=== PATIENT | male | born 1940 | race Caucasian/White ===

== ENCOUNTER → 2017-06-21 | Outpatient (CLI) | payer MEDICARE ==
[~2017-06-21] MED LIST: Benicar Hct 201 EACH PO; CARV6.25 PO; FISH OIL 1,001000 MG PO; HYDR-86; MELO7.5 PO; SIMV10 PO
== END ==
LOC: PLD 07:07
DX: R22.1 Localized swelling, mass and lump, neck (principal)
CPT/HCPCS: 88173

== ENCOUNTER 2017-07-20 08:14 | Day surgery (SDC) | payer MEDICARE ==
[~2017-07-20] VITALS: Ht 180.3 cm; Wt 81.7 kg
[2017-07-20] MEDS ORDERED: CARV6.25 PO (09:08)
[2017-07-20] MEDS ORDERED: Benicar Hct 201 EACH PO (09:08)
[2017-07-20] MEDS ORDERED: FISH OIL 1,001000 MG PO (09:09)
[2017-07-20] MEDS ORDERED: HYDR-86 (09:09)
[2017-07-20] MEDS ORDERED: SIMV10 PO (09:10)
[2017-07-20] MEDS ORDERED: MELO7.5 PO (09:10)
== END 2017-07-20 11:22 | disposition home or self-care (01) ==
LOC: ORSCSDS 08:14
PROVIDERS: Otolaryngology
PROC: 0JB40ZX Excision of Right Neck Subcutaneous Tissue and Fascia, Open Approach, Diagnostic (ICD-10-PCS; principal; 2017-07-20 09:30)
DX: R22.1 Localized swelling, mass and lump, neck (principal); D21.0 Benign neoplasm of connective and other soft tissue of head, face and neck; I10 Essential (primary) hypertension; J44.9 Chronic obstructive pulmonary disease, unspecified; K21.9 Gastro-esophageal reflux disease without esophagitis; Z79.899 Other long term (current) drug therapy
CPT/HCPCS: 88304; J0171; J1100; J1885; J2405; J7120

== ENCOUNTER → 2019-05-08 | Outpatient (CLI) | payer MEDICARE | END | disposition home or self-care (01) | LOC: PLD 07:55 → LAB SHORT 07:55 | DX: D10.5 Benign neoplasm of other parts of oropharynx (principal) | CPT/HCPCS: 88305 ==

== ENCOUNTER → 2020-11-22 | Outpatient (CLI) | payer MEDICARE | END | disposition home or self-care (01) | LOC: LAB SHORT 14:09 → LAB 14:09 | DX: D48.5 Neoplasm of uncertain behavior of skin (principal) | CPT/HCPCS: 88305 ==

== ENCOUNTER → 2021-04-13 | Outpatient (CLI) | payer MEDICARE | END | disposition home or self-care (01) | LOC: LAB 10:51 → LAB SHORT 10:51 | DX: D48.5 Neoplasm of uncertain behavior of skin (principal) | CPT/HCPCS: 88305 ==

== ENCOUNTER → 2021-06-27 | Outpatient (CLI) | payer MEDICARE | END | disposition home or self-care (01) | LOC: LAB SHORT 11:06 | PROVIDERS: Family Medicine | DX: Z51.81 Encounter for therapeutic drug level monitoring (principal); Z79.899 Other long term (current) drug therapy | CPT/HCPCS: G0480 ==

== ENCOUNTER → 2022-07-15 | Outpatient (CLI) | payer MEDICARE ==
[2022-07-15 12:13] LABS: Source, Urine Clean Catch
[2022-07-15 12:30] LABS: Appearance, Urine Cloudy (Clear); Color, Urine Brown (P-Yellow)
[2022-07-15 12:31] LABS: Bacteria Many /hpf; Bilirubin, Urine Neg (Neg); Blood, Urine 2+ (Neg); Glucose Qualitative, Urine Neg (Normal); Ketones, Urine Neg (Neg); Leukocyte Esterase, Urine 1+ (Neg); Nitrite, Urine Pos (Neg); Protein, Urine 2+ (Neg); Red Blood Cells, Urine TNTC /hpf (0-2); Squamous Epithelial Cells Few /hpf (Few); Urobilinogen, Urine 1+ (Normal)
== END | disposition home or self-care (01) ==
LOC: LAB SHORT 12:09 → LAB 12:09
PROVIDERS: Physician Assistant
DX: R31.9 Hematuria, unspecified (principal)
CPT/HCPCS: 81001; 87086